=== PATIENT | male | born 1965 | race Caucasian/White ===

== ENCOUNTER 2017-12-18 12:00 | Inpatient (IN) | payer OTHER ==
[~2017-12-18] VITALS: Ht 172.7 cm; Wt 74.5 kg
[2018-01-01] MEDS ORDERED: BUPIVACAINE/PF 0.5% ONE (07:00)
[2018-01-01] MEDS ORDERED: THROMBIN 5,000 UNIT VIAL TP ONE (07:00)
[2018-01-01] MEDS ORDERED: BACITRACIN ZINC OINT 500U/GM, 0.9 GM ONE (07:01)
[2018-01-01] MEDS ORDERED: EPINEPHRINE 1 MG/ML, 1ML ONE (07:01)
[2018-01-01] MEDS ORDERED: BACITRACIN 50,000 UNIT ONE (07:01)
[2018-01-01] MEDS ORDERED: THROMBIN 20,000 UNIT VIAL TP ONE (07:22)
[2018-01-01 11:04] VITALS: BP 144/97
[2018-01-01] MEDS ORDERED: HYDR12.58 PO (11:10)
[2018-01-01] MEDS ORDERED: AMLO10TA2 PO (11:10)
[2018-01-01] MEDS ORDERED: ATOR20TA PO (11:10)
[2018-01-01] MEDS ORDERED: HYDR-3240 PO (11:10)
[2018-01-01] MEDS ORDERED: LISI2.5T PO (11:10)
[2018-01-01] MEDS ORDERED: ASPI-496 PO (11:10)
[2018-01-01] MEDS ORDERED: CHOL10002 PO (11:10)
[2018-01-01] MEDS ORDERED: LISI40TA PO (11:21)
[2018-01-01] MEDS ORDERED: AMLO5TAB2 PO (11:21)
[2018-01-01] MEDS ORDERED: LIDOCAINE-MPF 1%, 2ML INFIL ONE (11:30)
[2018-01-01] MEDS: LACTATED RINGERS 1,000 ML IV SCH ×2 (11:45→12:51)
[2018-01-01] MEDS ORDERED: MIDAZOLAM 1 MG/ML, 2ML ONE (12:07)
[2018-01-01] MEDS ORDERED: FENTANYL PF 250 MCG/5ML ONE (12:07)
[2018-01-01] MEDS ORDERED: OxyconTIN ER 10 MG TAB.ER ONE (12:48)
[2018-01-01] MEDS ORDERED: FAMOTIDINE 20 MG TABLET ONE (12:48)
[2018-01-01] MEDS ORDERED: ACETAMINOPHEN 500 MG TABLET ONE (12:49)
[2018-01-01] MEDS ORDERED: PHENYLEPHRINE 10 MG/ML ONE (12:55)
[2018-01-01] MEDS ORDERED: ROCURONIUM 10 MG/ML,10ML ONE (12:55)
[2018-01-01] MEDS ORDERED: ACETAMINOPHEN 500 MG TABLET PO ONE (13:00)
[2018-01-01] MEDS ORDERED: OxyconTIN ER 10 MG TAB.ER PO ONE (13:00)
[2018-01-01] MEDS ORDERED: FAMOTIDINE 20 MG TABLET PO ONE (13:00)
[2018-01-01] MEDS ORDERED: PROPOFOL 100 ML ONE (13:03)
[2018-01-01] MEDS ORDERED: morphine SULFATE 10 MG/ML, 1ML IV PRN (13:30)
[2018-01-01] MEDS ORDERED: OXYcodone 5 MG/5 ML ORAL.SOL UDC PO PRN (13:30)
[2018-01-01] MEDS ORDERED: PROMETHAZINE 25 MG/ML, 1ML IV PRN (13:30)
[2018-01-01] MEDS ORDERED: ONDANSETRON 2MG/ML, 2ML IVPush PRN (13:30)
[2018-01-01] MEDS ORDERED: GLYCOPYRROLATE 0.2MG/1ML, 5ML ONE (13:47)
[2018-01-01] MEDS ORDERED: PROPOFOL 10 MG/ML, 20ML ONE (13:47)
[2018-01-01] MEDS ORDERED: NEOSTIGMINE 1 MG/ML, 10ML ONE (13:47)
[2018-01-01] MEDS ORDERED: SUCCINYLCHOLINE 20 MG/ML, 10ML ONE (13:47)
[2018-01-01] MEDS ORDERED: DEXAMETHASONE 4 MG/ML, 1ML ONE (13:47)
[2018-01-01] MEDS ORDERED: CEFAZOLIN 1,000 MG ONE (13:47)
[2018-01-01] MEDS ORDERED: FENTANYL PF 100 MCG/2ML ONE (14:27)
[2018-01-01] MEDS: FENTANYL PF 100 MCG/2ML IV PRN ×2 (14:30→14:36)
[2018-01-01] MEDS ORDERED: MORPHINE SULFATE 4 MG/ML, 1ML ONE (14:45)
[2018-01-01] MEDS ORDERED: OXYcodone 5 MG/5 ML ORAL.SOL UDC ONE (14:57)
[2018-01-01] MEDS ORDERED: METHOCARBAMOL 1000MG/10 ML IVPB ONE (15:00)
[2018-01-01] MEDS ORDERED: METHOCARBAMOL 1,000 MG in DEXTROSE 5% 100 ML IV ONE (15:30)
[2018-01-01] MEDS ORDERED: methylPREDNISolone*ACETATE* 80 MG/ML IM ONE (16:30)
== END 2018-01-01 17:55 | disposition home or self-care (01) | DRG 517 ==
LOC: ORIP 01-01 10:29
PROVIDERS: ADMIT Neurological Surgery; ATTEND Neurological Surgery
PROC: 01NB0ZZ Release Lumbar Nerve, Open Approach (ICD-10-PCS; principal; 2018-01-01 12:30)
DX: M48.061 Spinal stenosis, lumbar region without neurogenic claudication (principal); E78.5 Hyperlipidemia, unspecified; I10 Essential (primary) hypertension; M51.26 Other intervertebral disc displacement, lumbar region; Z88.5 Allergy status to narcotic agent
CPT/HCPCS: 72100; J0171; J0690; J1100; J2250; J2704; J2710; J3010; J3490; J0330; J1040; J2270; J2370; J2800; J7120